=== PATIENT | female | born 1960 | race Caucasian/White ===

== ENCOUNTER 2017-01-13 12:10 | Emergency (ER) | payer MEDICARE, OTHER | END 2017-01-13 15:12 | disposition critical access hospital (66) | LOC: ER 12:10 | DX: L03.031 Cellulitis of right toe (principal); E11.9 Type 2 diabetes mellitus without complications; I11.0 Hypertensive heart disease with heart failure; I50.9 Heart failure, unspecified; I25.2 Old myocardial infarction; Z87.891 Personal history of nicotine dependence; Z86.73 Personal history of transient ischemic attack (TIA), and cerebral infarction without residual deficits; Z95.1 Presence of aortocoronary bypass graft; Z98.51 Tubal ligation status; H40.9 Unspecified glaucoma; Z79.82 Long term (current) use of aspirin; Z79.02 Long term (current) use of antithrombotics/antiplatelets; Z79.899 Other long term (current) drug therapy | CPT/HCPCS: 36415; 96365; 96367; 96375; J0696; J3370 ==

== ENCOUNTER 2017-01-13 12:10 | Inpatient (IN) | payer MEDICARE, OTHER ==
[~2017-01-13] VITALS: Ht 152.4 cm; Wt 62.6 kg
--- NOTE | 2017-01-14 17:05 | NUR ---
REPORT GIVEN TO NICOLE LEACH TO TAKE OVER CARE OF PATIENT
--- NOTE | 2017-01-17 14:18 | NUR ---
1400 pt o2 sat 84 o2 at 2 liters put on increased to 90 sat. pt. says feels ok no sob. dr. osorio notified hr 102
--- NOTE | 2017-01-17 17:21 | NUR ---
1630 pt. sob 02 increased to 3 liters per n/c, dr. osorio notified, lasix 40 mg iv given 1715 pt. c/o of sob o2 at 3liters o2 sat 92 hr 108 pt. says chest feels heavy dr. osorio here to see pt.new orders received
--- NOTE | 2017-01-17 21:08 | NUR ---
01/17/171953 PATIENT HAVING DIFFICULTY BREATHING, LUNG SOUNDS WET WITH EXPIRATORY WHEEZING UPON AUSCULTATION, RESPIRATORY THERAPIST IN ROOM, O2 ON AT 3 LITER N/C 02 SAT 87. RESPIRATIONS. PATIENT ALERT ORIENTED X3 TALKING WITH STAFF AND FAMILY IS AT BEDSIDE. PATIENT RECIEVING NEB TREATMENT. NURSE CALLED ONCALL MD DR. CUADRA, NEW ORDER FOR STAT ABG, BIPAP, AND LASIX 40MG IV NOW. 01/17/172011 LASIX HAS BEEN GIVEN, ABG HAVE BEEN CALLED TO DR. CUADRA, NEW ORDER FOR ANCHOR LAW CATHETER FOR STRICT I AND O COUNT GIVEN. PATIENT HAS BIPAP ON, PATIENT ALERT ORIENTED, O2 SAT NOW 98% FAMILY AT BEDSIDE.
--- NOTE | 2017-01-17 22:47 | NUR ---
DR CUADRA CAME IN TO ASSESS PATIENT, NEW ORDER GIVEN TO SEND TO TRANSFER TO ICU. PATIENT ALERT TALKATVE WEARING BIPAP. PATIENT O2 SAT 98%. DAUGHTER DENA AT BEDSIDE SPOKE WITH . V/S B/P 118/77 HR 95 R 24 TEMP 98.1 CALLED REPORT TO COSMETICIAN. PATIENT TRANSFERRED TO ICU TOLERATED WELL. TRANSFER AT 2221.
--- NOTE | 2017-01-17 22:57 | NUR ---
2230 01/17/2017 RECEIVED PT FROM [facility] UN[facility] WITH C/OS TACHYPNEA AND SHORTNESS OF AIR. PT PLACED ON PIT STEWARD, PACED RHYTHM WITH RATE IN 90-95. OXYGEN SATURATION 81% ON 4 LITERS NC. PT PLACED ON BIPAP BY RESPIRATORY THERAPY, RATE 18/6 70% WITH IMPROVED OXYGEN SATURATION 97-99%. PT REMAINS TACYPNEIC WITH RESPPIRATORY RATE 30-35.
--- NOTE | 2017-01-18 06:18 | NUR ---
0610 01/18/[address] CUADRA PT'S OXYGEN SATURATION HOVERING AROUND 89-90% ON 70% 08/03 BIBPAP. FIO2 INCREASED TO 80% BY RESPIRATIORY THERAPY AND SETTINGS INCREASED TO /. NOTIFIED DR. CUADRA. PORTABLE CXR ORDERED FOR AM. PT'S CURRENT OXYGEN SATURATION 94% ON ABOVE SETTINGS. RESPIRATORY RATE 45.
--- NOTE | 2017-01-18 17:23 | NUR ---
1430: ANETHESIA CONSULT FOR ETT TUBE PLACEMENT. 1500: SYD DUNN CRNA ON FLOOR TO PTS ROOM. SPOKE WITH PATIENT AND FAMILY IN REGARDS TO PLAN OF CARE, PT/FAMILY VERBALIZED UNDERSTANDING AND AGREEMENT. 1505: ANETHESIA PLACED 7.5 ETT-19CM AT THE TEETH. 1510: VERSED DRIP STARTED AT 2MG. PT BECAME AGITATED, PULLING AT LINES DRIP INCREASED TO 3MG 1510: VERSED HELD AT THIS TIME. DIPRIVAN STARTED TITRATED TO KEEP RASS SCORE AT 4-5
--- NOTE | 2017-01-18 18:08 | NUR ---
1700: REPORT GIVEN TO FIGUEROA ARANDA RN ON [facility], RN VERBALIZED AGREEMENT WITH REPORT
--- NOTE | 2017-01-18 18:08 | NUR ---
1730: PT TRANSPORTED OFF FLOOR VIA [facility] VIA ST[facility]CHER. FAMILY AT BEDSIDE.
--- NOTE | 2017-01-18 18:36 | NUR ---
1635: NS BOLUS COMPLETED. WILL CONTINUE TO MONITOR
--- NOTE | 2017-01-18 18:36 | NUR ---
1550: 500 ML NS BOLUS STARTED R/T B/P /
== END 2017-01-18 17:50 | disposition short-term general hospital (02) | DRG 504 ==
LOC: ER 12:10 → MED 15:13 → ICU 01-17 22:30
PROVIDERS: ADMIT Internal Medicine
PROC: 0S9P0ZZ Drainage of Right Toe Phalangeal Joint, Open Approach (ICD-10-PCS; principal; 2017-01-16)
PROC: 0BH17EZ Insertion of Endotracheal Airway into Trachea, Via Natural or Artificial Opening (ICD-10-PCS; 2017-01-18)
PROC: 5A1935Z Respiratory Ventilation, Less than 24 Consecutive Hours (ICD-10-PCS; 2017-01-18)
DX: M00.071 Staphylococcal arthritis, right ankle and foot (principal); L02.611 Cutaneous abscess of right foot; J80 Acute respiratory distress syndrome; L03.031 Cellulitis of right toe; B95.61 Methicillin susceptible Staphylococcus aureus infection as the cause of diseases classified elsewhere; I73.9 Peripheral vascular disease, unspecified; E11.9 Type 2 diabetes mellitus without complications; I25.10 Atherosclerotic heart disease of native coronary artery without angina pectoris; Z95.1 Presence of aortocoronary bypass graft; J44.9 Chronic obstructive pulmonary disease, unspecified; M06.9 Rheumatoid arthritis, unspecified; E78.5 Hyperlipidemia, unspecified; E03.9 Hypothyroidism, unspecified; F31.9 Bipolar disorder, unspecified; I10 Essential (primary) hypertension; M81.0 Age-related osteoporosis without current pathological fracture; Z79.02 Long term (current) use of antithrombotics/antiplatelets; Z79.82 Long term (current) use of aspirin; Z79.899 Other long term (current) drug therapy; Z95.810 Presence of automatic (implantable) cardiac defibrillator; Z87.891 Personal history of nicotine dependence; Z82.49 Family history of ischemic heart disease and other diseases of the circulatory system; F99 Mental disorder, not otherwise specified; E87.6 Hypokalemia; J30.9 Allergic rhinitis, unspecified
CPT/HCPCS: 36415; 93922; 94664; 97162-GP; 97165; J0330; J0696; J1650; J1885; J1940; J2704; J2765; J3370; J7050

== ENCOUNTER 2017-02-03 21:49 | Observation (INO) | payer MEDICARE, OTHER ==
[~2017-02-03] VITALS: Ht 152.4 cm; Wt 59.6 kg
== END 2017-02-05 12:40 | disposition home or self-care (01) ==
LOC: ER 21:49 → MED 02-04 01:30
PROVIDERS: ADMIT Internal Medicine
DX: R07.81 Pleurodynia (principal); R06.02 Shortness of breath; I10 Essential (primary) hypertension; I73.9 Peripheral vascular disease, unspecified; E11.69 Type 2 diabetes mellitus with other specified complication; M86.9 Osteomyelitis, unspecified; M06.9 Rheumatoid arthritis, unspecified; M81.0 Age-related osteoporosis without current pathological fracture; E03.9 Hypothyroidism, unspecified; E78.5 Hyperlipidemia, unspecified; F31.9 Bipolar disorder, unspecified; Z79.4 Long term (current) use of insulin; Z79.02 Long term (current) use of antithrombotics/antiplatelets; Z79.82 Long term (current) use of aspirin; Z79.891 Long term (current) use of opiate analgesic; Z79.899 Other long term (current) drug therapy; Z95.810 Presence of automatic (implantable) cardiac defibrillator; Z98.890 Other specified postprocedural states
CPT/HCPCS: 36415; 96365; 96366; 96372; 96374; 96375; 96376; 97162-GP; 97165; G0378; J0696; J1650; Q9967

== ENCOUNTER 2017-02-15 13:35 | Emergency (ER) | payer MEDICARE, OTHER | END 2017-02-15 17:44 | disposition home or self-care (01) | LOC: ER 13:35 | DX: I11.0 Hypertensive heart disease with heart failure (principal); I50.9 Heart failure, unspecified; E11.9 Type 2 diabetes mellitus without complications; I25.2 Old myocardial infarction; H40.9 Unspecified glaucoma; J44.9 Chronic obstructive pulmonary disease, unspecified; F31.9 Bipolar disorder, unspecified; Z95.1 Presence of aortocoronary bypass graft; Z87.891 Personal history of nicotine dependence; Z86.73 Personal history of transient ischemic attack (TIA), and cerebral infarction without residual deficits; Z79.02 Long term (current) use of antithrombotics/antiplatelets; Z79.82 Long term (current) use of aspirin; Z79.899 Other long term (current) drug therapy; Z98.51 Tubal ligation status | CPT/HCPCS: 36415; 96374; J1940; Q9967 ==

== ENCOUNTER 2017-03-13 14:56 | Emergency (ER) | payer MEDICARE, OTHER | END 2017-03-13 17:50 | disposition critical access hospital (66) | LOC: ER 14:56 | DX: J44.1 Chronic obstructive pulmonary disease with (acute) exacerbation (principal); J20.9 Acute bronchitis, unspecified; I25.10 Atherosclerotic heart disease of native coronary artery without angina pectoris; I25.2 Old myocardial infarction; E11.9 Type 2 diabetes mellitus without complications; I10 Essential (primary) hypertension; Z86.73 Personal history of transient ischemic attack (TIA), and cerebral infarction without residual deficits; F17.200 Nicotine dependence, unspecified, uncomplicated; Z98.51 Tubal ligation status | CPT/HCPCS: 36415; 87502; 96361; 96365; 96375 ==